=== PATIENT | female | born 1975 | race African-American/Black ===

== ENCOUNTER 2016-09-23 13:12 | Emergency (ER) | payer BC ==
[2016-09-23 13:18] VITALS: BP 131/85
--- NOTE | 2016-09-23 13:29 | UC ---
Complaint Female HPI - HPI Summary HPI Summary: 41 YEAR OLD FEMALE WITH COMPLAINS OF SEVERE SUPRAPUBIC PAIN AND FEAR OF RUPTURED CYST. I WILL SEND HER TO THE ER FOR PAIN CONTROL AND VAGINAL U/S. - History Of Current Complaint Chief Complaint: UCAbdominalPain Stated Complaint: SOFT TISSUE COMPLAINT Time Seen by Provider: 09/23/16 13:21 Hx Last Menstrual Period: does not get - Allergies/Home Medications Allergies/Adverse Reactions: Allergies Allergy/AdvReac Type Severity Reaction Status Date / Time Aspirin Allergy Severe Hives/Diff. Verified 09/23/16 14:33 Breathing/I tching Moxifloxacin [From Avelox] Allergy Severe Hives Verified 09/23/16 14:33 shellfish Allergy Severe Hives/Diff. Uncoded 09/23/16 14:33 Breathing/I tching PMH/Surg Hx/FS Hx/Imm Hx - Surgical History Surgical History: Yes Surgery Procedure, Year, and Place: ovarian mass (benign) removed 2010; bilat knee meniscus repair w/ pins; - Family History Known Family History: Positive: None - reviewed & noncontributory, Hypertension - mother Negative: Cardiac Disease, Diabetes - Social History Alcohol Use: Weekly Alcohol Amount: wine 2x week Substance Use Type: None Smoking Status (MU): Light Every Day Tobacco Smoker Type: Cigarettes Amount Used/How Often: 1/2 PPD Length of Time of Smoking/Using Tobacco: since age 20, off and on Household Exposure Type: Cigarettes Review of Systems Constitutional: Negative Skin: Negative Eyes: Negative ENT: Negative Respiratory: Negative Cardiovascular: Negative Gastrointestinal: Negative Genitourinary: Other - SUPRAPUBIC PAIN Motor: Negative Neurovascular: Negative Musculoskeletal: Negative Neurological: Negative Psychological: Negative All Other Systems Reviewed And Are Negative: Yes Physical Exam Triage Information Reviewed: Yes Vital Signs: Initial Vital Signs Temp 36.6 C 09/23/16 13:15 Pulse 91 09/23/16 13:15 Resp 20 09/23/16 13:15 BP 131/85 09/23/16 13:15 Pulse Ox 100 09/23/16 13:15 Eye Exam: Normal ENT Exam: Normal Dental Exam: Normal Neck exam: Normal Neck: Positive: 1 Respiratory Exam: Normal Cardiovascular Exam: Normal Abdomen Description: Positive: Other: - SUPRAPUBIC PAIN Musculoskeletal Exam: Normal Neurological Exam: Normal Psychological Exam: Normal Skin Exam: Normal Complaint Female Dx - Course Course Of Treatment: SUPRUPUBIC ABDOMINAL PAIN - Differential Dx/Diagnosis Provider Diagnoses: SUPRAPUBIC PAIN Discharge - Discharge Plan Condition: Guarded Disposition: AGAINST MEDICAL ADVICE Referrals: Gucci Spence MD [Primary Care Provider] -
== END 2016-09-23 13:35 | disposition left against medical advice (07) ==
LOC: UCEAST 13:12
DX: R10.30 Lower abdominal pain, unspecified (principal); Z88.6 Allergy status to analgesic agent; Z88.1 Allergy status to other antibiotic agents; Z91.013 Allergy to seafood; F17.210 Nicotine dependence, cigarettes, uncomplicated
CPT/HCPCS: 99212; G0463

== ENCOUNTER 2016-09-23 14:05 | Emergency (ER) | payer BC ==
[2016-09-23] MEDS ORDERED: NS 0.9% 1000 ML* 1,000 ML IV SCH (15:00)
[2016-09-23] MEDS ORDERED: Ondansetron INJ* 2 MG/ML VIAL IV ONE (15:00)
[2016-09-23] MEDS ORDERED: Morphine INJ* 4 MG/ML 1 ML SYRINGE IV ONE ×2 (15:00→18:26)
[2016-09-23 15:26] LABS: Hematocrit 40 % (35-47); Hemoglobin 13.1 g/dl (12.0-16.0); Mean Corpuscular HGB Conc 33 g/dl (31-36); Mean Corpuscular Hemoglobin 29 pg (27-31); Mean Corpuscular Volume 88 fL (80-97); Mean Platelet Volume 8 um3 (7.4-10.4); Red Blood Count 4.49 10^6/ul (4.0-5.4); Red Cell Distribution Width 14 % (10.5-15)
[2016-09-23 15:42] LABS: Urine Bilirubin Negative (Negative); Urine Glucose Negative (Negative); Urine Nitrite Negative (Negative)
[2016-09-23 15:43] LABS: ALT 29 U/L (7-52); AST 15 U/L (13-39); Alkaline Phosphatase 47 U/L (34-104); Anion Gap 6 mmol/L (2-11); BUN/Creatinine Ratio 14.8 (8-20); Blood Urea Nitrogen 13 mg/dL (6-24); CO2 Carbon Dioxide 24 mmol/L (22-32); Calcium 9.4 mg/dL (8.6-10.3); Chloride 107 mmol/L (101-111); EGFR African American 91.5 (>60); EGFR Non-African American 71.2 (>60); Globulin 2.9 g/dL (2-4); Glucose 117 mg/dL (70-100); Lipase 21 U/L (11.0-82.0); Potassium 3.4 mmol/L (3.5-5.0); Sodium 137 mmol/L (133-145); Total Protein 6.9 g/dL (6.4-8.9)
--- NOTE | 2016-09-23 15:54 | RAD ---
HISTORY: Pelvic pain COMPARISONS: June 03, 2015 TECHNIQUE: Multiple transverse and longitudinal ultrasound images were obtained of the pelvis using grayscale, color Doppler, and spectral Doppler imaging using the endovaginal transducer. FINDINGS: UTERUS: The uterus measures 7.5 x 4.1 x 4.7 cm. The uterus is normal in shape, size, contour, and echotexture. ENDOMETRIUM: The endometrial stripe is smooth. The endometrium measures 1.1 cm in thickness. There is cystic change of the endometrium at the lower uterine segment. CUL-DE-SAC: There is a small amount of simple fluid within the cul-de-sac. This may be physiologic in a reproductive age female. RIGHT OVARY: The right ovary measures 4.2 x 2.2 x 3.1 cm. Multiple follicles are noted. Normal arterial and venous waveforms are identifiable within the ovary on spectral Doppler imaging. LEFT OVARY: The left ovary measures 3.8 x 2.5 x 1.8 cm. Multiple follicles are noted. Normal arterial and venous waveforms are identifiable within the ovary on spectral Doppler imaging. BLADDER: The bladder is not well visualized. IMPRESSION: 1. CYSTIC CHANGE TO THE ENDOMETRIUM ALONG THE LOWER UTERINE SEGMENT. 2. SMALL AMOUNT WITHIN THE CUL-DE-SAC. THIS MAY BE PHYSIOLOGIC IN A REPRODUCTIVE AGE FEMALE. 3. NO SONOGRAPHIC FEATURES OF TORSION. PLEASE NOTE THAT PARTIAL OR INTERMITTENT TORSION MAY BE SONOGRAPHICALLY NORMAL.
[2016-09-23 16:08] LABS: TSH (Thyroid Stimulating Horm) 2.13 mcIU/mL (0.34-5.60)
[2016-09-23] MEDS ORDERED: Iohexol 300* (CONTRAST) 10 ML SDV IV ONE (16:51)
[2016-09-23 17:38] VITALS: BP 106/64
--- NOTE | 2016-09-23 18:54 | RAD ---
CLINICAL HISTORY: Lower abdominal and back pain COMPARISON: Multiple previous CT examinations, most recently dated January 28, 2014 TECHNIQUE: Contrast enhanced CT examination of the abdomen and pelvis from the lung bases through the initial tuberosities. The patient received 125 mL Omnipaque 300 intravenously prior to imaging.The patient received oral contrast as well prior to imaging. FINDINGS: VISUALIZED LUNG BASES: The visualized lung bases are grossly clear. There is no pleural effusion. ABDOMEN AND PELVIS: The liver, spleen, pancreas and adrenal glands are grossly normal in appearance. The gallbladder is normal. The kidneys are normal in appearance without focal mass, calcification or signs of hydronephrosis. The oral contrast has progressed as far as the descending colon. The small and large bowel are not distended. The appendix is top normal measuring 7 mm in diameter but there is contrast and gas filling most of the lumen (coronal image 42 through 48). There is no gross retroperitoneal or mesenteric lymphadenopathy. The pelvic viscera is normal in appearance. The abdominal aorta and iliac arteries are normal in course and diameter. There are no sinister bone lesions. IMPRESSION: Normal CT examination.
--- NOTE | 2016-09-23 19:20 | ED ---
Courtney Santillan Edward, scribed for Reed Hernandez MD on 09/23/16 at 1439 . Abdominal Pain/Female - HPI Summary HPI Summary: 41 y/o female presents to ED c/o ABD pain that started around 4 days ago. Pain is located in the lower ABD and radiates to the lower back. The pain is rated at an 8/10 in severity at its worst and mild currently. Patient stated her back was in a throbbing pain. Pain is aggravated with bowel movements, urination, walking down steps and cough; alleviated by rest. Denies vaginal discharge, nausea, fevers, and chills. PMHx cysts and endometriosis. SHx ovarian mass removed (4 years). LNMP 3 weeks ago (normal). G/P/A - . - History of Current Complaint Chief Complaint: EDAbdPain Stated Complaint: PAIN COMING FROM CONV CARE Hx Obtained From: Patient Hx Last Menstrual Period: does not get Onset/Duration: Sudden Onset, Lasting Days - Started 4 days ago Timing: Constant Severity Initially: Severe Severity Currently: Severe Pain Intensity: 9 Pain Scale Used: 0-10 Numeric Location: Suprapubic Radiates: Yes Radiates to: Back Character: Other: - Throbbing Aggravating Factor(s): Movement - Walking down steps, Other: - Urination, bowel movements, cough Alleviating Factor(s): Other: - Rest Associated Signs and Symptoms: Positive: Back Pain. Negative: Fever, Vaginal Discharge, Nausea Allergies/Adverse Reactions: Allergies Allergy/AdvReac Type Severity Reaction Status Date / Time Aspirin Allergy Severe Hives/Diff. Verified 09/23/16 14:33 Breathing/I tching Moxifloxacin [From Avelox] Allergy Severe Hives Verified 09/23/16 14:33 shellfish Allergy Severe Hives/Diff. Uncoded 09/23/16 14:33 Breathing/I tching PMH/Surg Hx/FS Hx/Imm Hx Previously Healthy: No Endocrine/Hematology History: Denies: Hx Diabetes, Hx Systemic Lupus Erythematosus, Hx Thyroid Disease Cardiovascular History: Reports: Hx Hypertension - was on HCTZ, but no primary any longer Denies: Hx Congestive Heart Failure, Hx Hypercholesterolemia, Hx Pacemaker/ ICD Respiratory History: Denies: Hx Asthma, Hx Chronic Obstructive Pulmonary Disease (COPD) GI History: Reports: Other GI Disorders - abd mass ssurgery Denies: Hx Ulcer History: Denies: Hx Dialysis, Hx Renal Disease Musculoskeletal History: Denies: Hx Rheumatoid Arthritis Sensory History: Denies: Hx Hearing Aid Psychiatric History: Denies: Hx Panic Disorder - Cancer History Hx Chemotherapy: No - Surgical History Surgery Procedure, Year, and Place: ovarian mass (benign) removed 2010; bilat knee meniscus repair w/ pins; Infectious Disease History: No Infectious Disease History: Denies: Hx Hepatitis, Hx Human Immunodeficiency Virus (HIV), Traveled Outside the [place] in Last 30 Days - Family History Known Family History: Positive: Hypertension - mother Negative: Cardiac Disease, Diabetes - Social History Occupation: Employed Full-time Lives: Alone Alcohol Use: Weekly Alcohol Amount: wine 2x week Substance Use Type: Reports: None Hx Tobacco Use: Yes Smoking Status (MU): Light Every Day Tobacco Smoker Type: Cigarettes Amount Used/How Often: 1/2 PPD Length of Time of Smoking/Using Tobacco: since age 20, off and on Review of Systems Constitutional: Negative Negative: Fever, Chills Eyes: Negative ENT: Negative Cardiovascular: Negative Respiratory: Negative Positive: Abdominal Pain - radiating to the back. Negative: Nausea Genitourinary: Negative Negative: discharge Positive: Myalgia - Lower back pain from abd pain Skin: Negative Neurological: Negative Psychological: Normal All Other Systems Reviewed And Are Negative: Yes Physical Exam Triage Information Reviewed: Yes Vital Signs On Initial Exam: Initial Vitals Temp Pulse Resp BP Pulse Ox 98.0 F 88 16 141/88 98 09/23/16 14:09 09/23/16 14:09/23/16 14:09/23/16 14:09/23/16 14:09 Vital Signs Reviewed: Yes Appearance: Positive: Well-Appearing, Pain Distress - Mild Skin: Positive: Warm, Skin Color Reflects Adequate Perfusion, Dry Head/Face: Positive: Normal Head/Face Inspection Eyes: Positive: EOMI, HUE ENT: Positive: Normal ENT inspection Neck: Positive: Supple, Nontender Respiratory/Lung Sounds: Positive: Clear to Auscultation, Breath Sounds Present Cardiovascular: Positive: RRR Abdomen Description: Positive: Soft, Other: - Tenderness @ suprapubic region Bowel Sounds: Positive: Present Musculoskeletal: Positive: Normal, Strength/ROM Intact Neurological: Positive: Normal, Sensory/Motor Intact, Alert, Oriented to Person Place, Time Psychiatric: Positive: Affect/Mood Appropriate - Keny Coma Scale Coma Scale Total: 15 Diagnostics - Vital Signs Vital Signs Temp Pulse Resp BP Pulse Ox 09/23/16 14:09 98.0 F 88 16 141/88 98 - Laboratory Lab Results: Lab Results 09/23/16 09/23/16 09/23/16 Range/Units 14:25 15:15 15:15 WBC 8.0 (3.5-10.8) 10^3/ul RBC 4.49 (4.0-5.4) 10^6/ul Hgb 13.1 (12.0-16.0) g/dl Hct 40 (35-47) % MCV 88 (80-97) fL MCH 29 (27-31) pg MCHC 33 (31-36) g/dl RDW 14 (10.5-15) % Plt Count 254 (150-450) 10^3/ul MPV 8 (7.4-10.4) um3 Neut % (Auto) 57.5 (38-83) % Lymph % (Auto) 31.8 (25-47) % [place] % (Auto) 8.3 (1-9) % Eos % (Auto) 1.5 (0-6) % Baso % (Auto) 0.9 (0-2) % Absolute Neuts (auto) 4.6 (1.5-7.7) 10^3/ul Absolute Lymphs (auto) 2.6 (1.0-4.8) 10^3/ul Absolute Monos (auto) 0.7 (0-0.8) 10^3/ul Absolute Eos (auto) 0.1 (0-0.6) 10^3/ul Absolute Basos (auto) 0.1 (0-0.2) 10^3/ul Absolute Nucleated RBC 0.01 10^3/ul Nucleated RBC % 0.1 INR (Anticoag Therapy) 0.97 (0.89-1.11) APTT 29.4 (26.0-36.3) seconds Sodium (133-145) mmol/L Potassium (3.5-5.0) mmol/L Chloride (101-111) mmol/L Carbon Dioxide (22-32) mmol/L Anion Gap (2-11) mmol/L BUN (6-24) mg/dL Creatinine (0.51-0.95) mg/dL Est GFR ( Amer) (>60) Est GFR (Non-Af Amer) (>60) BUN/Creatinine Ratio (8-20) Glucose (70-100) mg/dL Lactic Acid (0.5-2.0) mmol/L Calcium (8.6-10.3) mg/dL Total Bilirubin (0.2-1.0) mg/dL AST (13-39) U/L ALT (7-52) U/L Alkaline Phosphatase (34-104) U/L C-Reactive Protein (< 5.00) mg/L Total Protein (6.4-8.9) g/dL Albumin (3.2-5.2) g/dL Globulin (2-4) g/dL Albumin/Globulin Ratio (1-3) Lipase (11.0-82.0) U/L TSH (0.34-5.60) mcIU/mL Beta HCG, Quant mIU/mL Urine Color Yellow Urine Appearance Clear Urine pH 7.0 (5-9) Ur Specific Baker 1.012 (1.010-1.030) Urine Protein Negative (Negative) Urine Ketones Negative (Negative) Urine Blood Negative (Negative) Urine Nitrate Negative (Negative) Urine Bilirubin Negative (Negative) Urine Urobilinogen Negative (Negative) Ur Leukocyte Esterase Negative (Negative) Urine Glucose Negative (Negative) 09/23/16 09/23/16 Range/Units 15:15 15:15 WBC (3.5-10.8) 10^3/ul RBC (4.0-5.4) 10^6/ul Hgb (12.0-16.0) g/dl Hct (35-47) % MCV (80-97) fL MCH (27-31) pg MCHC (31-36) g/dl RDW (10.5-15) % Plt Count (150-450) 10^3/ul MPV (7.4-10.4) um3 Neut % (Auto) (38-83) % Lymph % (Auto) (25-47) % [place] % (Auto) (1-9) % Eos % (Auto) (0-6) % Baso % (Auto) (0-2) % Absolute Neuts (auto) (1.5-7.7) 10^3/ul Absolute Lymphs (auto) (1.0-4.8) 10^3/ul Absolute Monos (auto) (0-0.8) 10^3/ul Absolute Eos (auto) (0-0.6) 10^3/ul Absolute Basos (auto) (0-0.2) 10^3/ul Absolute Nucleated RBC 10^3/ul Nucleated RBC % INR (Anticoag Therapy) (0.89-1.11) APTT (26.0-36.3) seconds Sodium 137 (133-145) mmol/L Potassium 3.4 L (3.5-5.0) mmol/L Chloride 107 (101-111) mmol/L Carbon Dioxide 24 (22-32) mmol/L Anion Gap 6 (2-11) mmol/L BUN 13 (6-24) mg/dL Creatinine 0.88 (0.51-0.95) mg/dL Est GFR ( Amer) 91.5 (>60) Est GFR (Non-Af Amer) 71.2 (>60) BUN/Creatinine Ratio 14.8 (8-20) Glucose 117 H (70-100) mg/dL Lactic Acid 0.9 (0.5-2.0) mmol/L Calcium 9.4 (8.6-10.3) mg/dL Total Bilirubin 0.30 (0.2-1.0) mg/dL AST 15 (13-39) U/L ALT 29 (7-52) U/L Alkaline Phosphatase 47 (34-104) U/L C-Reactive Protein 5.80 H (< 5.00) mg/L Total Protein 6.9 (6.4-8.9) g/dL Albumin 4.0 (3.2-5.2) g/dL Globulin 2.9 (2-4) g/dL Albumin/Globulin Ratio 1.4 (1-3) Lipase 21 (11.0-82.0) U/L TSH 2.13 (0.34-5.60) mcIU/mL Beta HCG, Quant < 0.60 mIU/mL Urine Color Urine Appearance Urine pH (5-9) Ur Specific Baker (1.010-1.030) Urine Protein (Negative) Urine Ketones (Negative) Urine Blood (Negative) Urine Nitrate (Negative) Urine Bilirubin (Negative) Urine Urobilinogen (Negative) Ur Leukocyte Esterase (Negative) Urine Glucose (Negative) Result Diagrams: 09/23/16 15:15 09/23/16 15:15 Lab Statement: Any lab studies that have been ordered have been reviewed, and results considered in the medical decision making process. - CT ABD/PELVIS CT CT Interpretation: No Acute Changes - Normal CT examination CT Interpretation Completed By: Radiologist - Ultrasound No standard instances Ultrasound Interpretation: Positive (See Comments) - TRANSVAGINAL US - 1. CYSTIC CHANGE TO THE ENDOMETRIUM ALONG THE LOWER UTERINE SEGMENT. 2. SMALL AMOUNT WITHIN THE CUL-DE-SAC. THIS MAY BE PHYSIOLOGIC IN A REPRODUCTIVE AGE FEMALE. 3. NO SONOGRAPHIC FEATURES OF TORSION. PLEASE NOTE THAT PARTIAL OR INTERMITTENT TORSION MAY BE SONOGRAPHICALLY NORMAL. Ultrasound Interpretation Completed By: Radiologist Abdominal Pain Fem Course/Dx - Course Course Of Treatment: NO CRITICAL CARE TIME. DISCUSSED RESULTS WITH PATIENT. SHE HAS F/U WITH PMD TOMORROW AND OBGYN NEXT WEEK. DISCHARGE HOME STABLE. - Diagnoses Provider Diagnoses: Pelvic pain, Abdominal pain Discharge - Discharge Plan Condition: Stable Disposition: HOME Prescriptions: oxyCODONE/Acetamin 5/325 MG* [Percocet 5/325 TAB*] 1 tab PO Q4H PRN #20 tab MDD 6 PRN Reason: Pain Patient Education Materials: Pelvic Pain in Women (ED), Abdominal Pain (ED) Referrals: Gucci Spence MD [Primary Care Provider] - Additional Instructions: FOLLOW UP WITH YOUR DOCTOR. RETURN TO THE EMERGENCY DEPARTMENT FOR ANY WORSENING OF YOUR CONDITION; PAIN, FEVER, YOU FEEL ILL, YOU FEEL LIKE PASSING OUT OR QUESTIONS OR CONCERNS. The documentation as recorded by the Courtney frances Edward accurately reflects the service I personally performed and the decisions made by me, Reed Hernandez MD.
== END 2016-09-23 19:27 | disposition home or self-care (01) ==
LOC: ED 14:05
DX: R10.2 Pelvic and perineal pain (principal); R10.9 Unspecified abdominal pain
CPT/HCPCS: 36415; 74177; 76830; 80053; 81003; 83605; 83690; 84443; 84702; 85025; 85610; 85730; 86140; 87480; 87491; 87510; 87591; 87661; 96374; 96375; 99283; J2270; J2405; Q9967

== ENCOUNTER 2017-03-27 15:30 | Emergency (ER) | payer BC ==
[2017-03-27] MEDS ORDERED: Acetaminophen TAB* 325 MG PO ONE (15:58)
[2017-03-27 16:33] VITALS: BP 136/96
--- NOTE | 2017-03-27 16:46 | UC ---
Frankie Santillan Nilda, scribed for Reed Hernandez MD on 03/27/17 at 1605 . Headache HPI - HPI Summary HPI Summary: This patient is a 41 year old F presenting to [facility] with a chief complaint of constant throbbing headache (rated 9/10 in severity) since waking up this morning. Pt woke up with blood glucose of 200 at 0900. Nurse states blood glucose is 159 currently. Pt also reports fatigue, increased thirst, urinary frequency, seeing dark spots, and lightheadedness. She denies fever, chills, burning with urination, CP, SOB, focal weakness or numbness, recent cough, rhinorrhea, and chest congestion. Symptoms alleviated by nothing. Pt notes she was recently diagnosed with diabetes and was placed on Metformin. Two weeks ago , her Metformin dosage was increased from 500mg per day to 500mg BID. Last week , pt reports nausea, vomiting, diaphoresis, and dizziness which was resolved when she ate food. Pt is on medications for HTN. Pt states she experienced similar headache before being placed on her high blood pressure medication. BP (167/115) noted and advised to follow up with PCP. Medications and allergies reviewed. - History Of Current Complaint Chief Complaint: UCDizziness Stated Complaint: LIGHT-HEADED,HEADACHE Time Seen by Provider: 03/27/17 15:39 Hx Obtained From: Patient Hx Last Menstrual Period: does not get Onset/Duration: Sudden Onset, Lasting Hours, Still Present Onset Of Symptoms: Sudden, Still Present Currently Pain Is: Current Pain Scale(0-10)= - 9 Pain Intensity: 9 Pain Scale Used: 0-10 Numeric Timing: Constant Character: Throbbing Location of Headache: Diffuse Allevating Factor(s): Nothing Associated Signs And Symptoms: Positive: Other (Noted In Comments) - fatigue, throbbing headache as if someone is squeezing my head in, increased thirst, urinary frequency, seeing dark spots, and lightheadedness. She denies fever, chills, burning with urination, CP, SOB, focal weakness or numbness, recent cough, rhinorrhea, and chest congestion. - Allergies/Home Medications Allergies/Adverse Reactions: Allergies Allergy/AdvReac Type Severity Reaction Status Date / Time Aspirin Allergy Severe Hives/Diff. Verified 03/27/17 15:34 Breathing/I tching Moxifloxacin [From Avelox] Allergy Severe Hives Verified 03/27/17 15:34 shellfish Allergy Severe Hives/Diff. Uncoded 03/27/17 15:34 Breathing/I tching Home Medications: Home Medications Irbesartan-Hydrochlorothiazide [Irbesartan/Hydrochlorothi 150-12.5 mg] 1 tab PO DAILY 03/27/17 [History Confirmed 03/27/17] Metoprolol Tartrate TAB* [Lopressor TAB*] 50 mg PO BID 03/27/17 [History Confirmed 03/27/17] Norethindrone Acetate-Ethinyl [Lo Loestrin Fe 1 mg-10 Mcg / 10 Mcg] 1 tab PO DAILY 03/27/17 [History Confirmed 03/27/17] metFORMIN* [Glucophage 500 MG TAB *] 500 mg PO BID 03/27/17 [History Confirmed 03/27/17] PMH/Surg Hx/FS Hx/Imm Hx Endocrine History: Diabetes Cardiovascular History: Hypertension - Surgical History Surgical History: Yes Surgery Procedure, Year, and Place: ovarian mass (benign) removed 2010; bilat knee meniscus repair w/ pins; - Family History Known Family History: Positive: Hypertension - mother, Diabetes Negative: Cardiac Disease - Social History Occupation: Employed Full-time Lives: With Family Alcohol Use: Weekly Alcohol Amount: wine 2x week Substance Use Type: None Smoking Status (MU): Light Every Day Tobacco Smoker Type: Cigarettes Amount Used/How Often: 1/2 PPD Length of Time of Smoking/Using Tobacco: since age 20, off and on Household Exposure Type: Cigarettes Review of Systems Constitutional: Fatigue, Other - elevated blood glucose, increased thirst; negative fever, chills Skin: Other - diaphoresis ENT: Other - negative rhinorrhea Respiratory: Other - negative SOB, cough, chest congestion Cardiovascular: Other - negative CP Gastrointestinal: Vomiting - last week, Nausea - last week Genitourinary: Frequency, Other - negative burning with urination Neurological: Headache, Other - light headedness, seeing dark spots, dizziness ( last week); negative focal weakness or numbness All Other Systems Reviewed And Are Negative: Yes Physical Exam Triage Information Reviewed: Yes Vital Signs: Initial Vital Signs Temp 97.7 F 03/27/17 15:39 Pulse 101 03/27/17 15:39 Resp 18 03/27/17 15:39 BP 167/115 03/27/17 15:39 Pulse Ox 100 03/27/17 15:39 Vital Signs Reviewed: Yes - Additional Comments General: well-appearing, no pain distress Skin: warm, color reflects adequate perfusion, dry Head: normal Eyes: EOMI, HUE ENT: normal Neck: supple, nontender Respiratory: CTA, breath sounds present Cardiovascular: RRR Abdomen: soft, nontender Bowel: present Musculoskeletal: normal, strength/ROM intact Neurological: normal, sensory/motor intact, A&O x3 Psychological: affect/mood appropriate Diagnostics - EKG Cardiac Rate: NL Cardiac Rhythm: Sinus: Normal - 76 bpm Ectopy: None ST Segment: Normal Headache Course/Dx - Course Course Of Treatment: BP noted and advised to follow up with PCP. Allergies noted. Medications reviewed. An EKG reveals NSR, 76 bpm, normal ST, and no ectopy. PATIENT TOOK HER AFTERNOON BP MED AND ACETAMINOPHEN 975MG PO IN CLINIC. BP IMPROVED TO 136/96 AND HEADACHE ALMOST GONE. WE DISCUSSED GOING TO THE ED IF NOT IMPROVED. F/U PMD; GO TO ED IF WORSE. - Differential Dx/Diagnosis Provider Diagnoses: hypertension. HEADACHE Discharge - Discharge Plan Condition: Stable Disposition: HOME Patient Education Materials: Acute Headache (ED), Hypertension (ED) Referrals: Briana Lion PA [Physician [employer]] - Additional Instructions: GO TO THE EMERGENCY DEPARTMENT IF YOUR HEADACHE DOES NOT GO AWAY AND/OR YOUR BLOOD PRESSURE DOES NOT IMPROVE. FOLLOW UP WITH YOUR DOCTOR. GO TO THE EMERGENCY DEPARTMENT FOR ANY WORSENING OF YOUR CONDITION OR QUESTIONS OR CONCERNS. Your blood pressure was elevated during todays visit; please follow up with your primary care provider within a week for further evaluation. The documentation as recorded by the Frankie frnaces Nilda accurately reflects the service I personally performed and the decisions made by me, Reed Hernandez MD.
== END 2017-03-27 16:52 | disposition home or self-care (01) ==
LOC: UCEAST 15:30
DX: R51 Headache (principal); I10 Essential (primary) hypertension; R53.83 Other fatigue; R63.1 Polydipsia; R35.0 Frequency of micturition; R42 Dizziness and giddiness; E11.9 Type 2 diabetes mellitus without complications; R61 Generalized hyperhidrosis; F17.210 Nicotine dependence, cigarettes, uncomplicated; Z88.6 Allergy status to analgesic agent; Z88.1 Allergy status to other antibiotic agents; Z91.013 Allergy to seafood; Z79.84 Long term (current) use of oral hypoglycemic drugs
CPT/HCPCS: 93005; 99212; A9270-GY; G0463

== ENCOUNTER 2018-03-31 09:16 | Emergency (ER) | payer BC ==
[2018-03-31 09:26] VITALS: BP 159/112
--- NOTE | 2018-03-31 09:56 | UC ---
Complaint Female HPI - HPI Summary HPI Summary: 42 yo female presents with RLQ/Right pelvic pain for the last 4 days. She tells me that she has a history of PCOS and benign "masses" around her reproductive organs. About 6 years ago she had surgery to remove a mass, but still maintains her ovaries and uterus. About 4 days ago she developed RLQ pain that she attributed to a cyst - as she has this discomfort rather frequently. She tells me that usually the pain with last 2-3 days and the cyst will burst and her pain will resolve, but this time the pain has been persisting. She denies fever , n/v/d/c, dysuria, vaginal bleeding or discharge. She has been taking ibuprofen for the discomfort with little relief. - History Of Current Complaint Chief Complaint: UCAbdominalPain Stated Complaint: ABD PAIN Time Seen by Provider: 03/31/18 09:43 Hx Obtained From: Patient Hx Last Menstrual Period: 03/15/18 Onset/Duration: Gradual Onset Severity Initially: Moderate Severity Currently: Severe Pain Intensity: 9 Pain Scale Used: 0-10 Numeric - Allergies/Home Medications Allergies/Adverse Reactions: Allergies Allergy/AdvReac Type Severity Reaction Status Date / Time MS Aspirin [Aspirin] Allergy Severe Hives/Diff. Verified 03/27/17 15:34 Breathing/I tching MS Moxifloxacin [From Avelox] Allergy Severe Hives Verified 03/27/17 15:34 shellfish Allergy Severe Hives/Diff. Uncoded 03/27/17 15:34 Breathing/I tching PMH/Surg Hx/FS Hx/Imm Hx - Additional Past Medical History Additional PMH: PCOS Endometriosis Cardiovascular History: Hypertension - Surgical History Surgical History: Yes Surgery Procedure, Year, and Place: ovarian mass (benign) removed 2010; bilat knee meniscus repair w/ pins; - Family History Known Family History: Positive: Hypertension - mother, Diabetes Negative: Cardiac Disease - Social History Occupation: Employed Full-time Lives: With Family Alcohol Use: Weekly Alcohol Amount: wine 2x week Substance Use Type: None Smoking Status (MU): Light Every Day Tobacco Smoker Type: Cigarettes Amount Used/How Often: 1/2 PPD Length of Time of Smoking/Using Tobacco: since age 20, off and on Household Exposure Type: Cigarettes Review of Systems All Other Systems Reviewed And Are Negative: Yes Constitutional: Positive: Negative Skin: Positive: Negative Respiratory: Positive: Negative Cardiovascular: Positive: Negative Gastrointestinal: Positive: Abdominal Pain Genitourinary: Positive: Negative Motor: Positive: Negative Neurological: Positive: Negative Psychological: Positive: Negative Physical Exam - Summary Physical Exam Summary: GENERAL: NAD. WDWN. No pain distress. SKIN: No rashes, sores, lesions, or open wounds. NECK: Supple. Nontender. No lymphadenopathy. CHEST: CTAB. No r/r/w. No accessory muscle use. Breathing comfortably and in no distress. CV: RRR. Without m/r/g. Pulses intact. Cap refill <2seconds ABDOMEN: Mild RLQ TTP. Negative rovsing's and psoas. Soft. No distention or guarding. No CVA tenderness. Bowel sounds present NEURO: Alert. PSYCH: Age appropriate behavior. Triage Information Reviewed: Yes Vital Signs: Initial Vital Signs Temp 98.6 F 03/31/18 09:22 Pulse 92 03/31/18 09:22 Resp 18 03/31/18 09:22 BP 159/112 03/31/18 09:22 Pulse Ox 100 03/31/18 09:22 Laboratory Tests 03/31/18 03/31/18 09:45 10:02 POC Urine Color Yellow POC Urine Clarity Clear POC Urine pH 6.5 POC Ur Specif [place] 1.020 POC Urine Protein Negative POC Ur Glucose (UA) Trace A POC Urine Ketones Negative POC Urine Blood Negative POC Urine Nitrite Negative POC Urine Bilirubin Negative POC Urine Urobilinogen 1.0 POC U Leukocyte Esteras Negative POC Ur Test Negative Vital Signs Reviewed: Yes Complaint Female Dx - Course Course Of Treatment: US: IMPRESSION: 1. THERE IS A 4.4 CM LESION OF THE RIGHT OVARY. THE DIFFERENTIAL INCLUDES HEMORRHAGIC. CYST VERSUS ENDOMETRIOMA. 2. NO SONOGRAPHIC FEATURES OF TORSION. PLEASE NOTE THAT PARTIAL OR INTERMITTENT TORSION. MAY BE SONOGRAPHICALLY NORMAL. She was given toradol IM in the clinic for her discomfort with mild relief. Discussed results with the pt. She has an OBGYN and will call them as soon as she leaves the clinic today for follow up. Rx for percocet to use sparingly for pain and if this cyst ruptures causing increased pain. iSTOP Reference #: [id number] - Differential Dx/Diagnosis Provider Diagnosis: Hemorrhagic cyst Discharge - Sign-Out/Discharge Documenting (check all that apply): Patient Departure All imaging exams completed and their final reports reviewed: Yes - Discharge Plan Condition: Stable Disposition: HOME Prescriptions: oxyCODONE/Acetamin 5/325 MG* [Percocet 5/325 TAB*] 1 tab PO Q8H PRN #12 tab MDD 3 PRN Reason: Pain Patient Education Materials: Ovarian Cyst (ED) Referrals: Briana Lion PA [Primary Care Provider] - Additional Instructions: If you develop a fever, shortness of breath, chest pain, new or worsening symptoms - please call your PCP or go to the ED. Your blood pressure was high at todays visit. Please see your primary provider within 4 weeks for recheck and re-evaluation. Please follow up with your OBGYN for further evaluation of your ovarian cyst - Billing Disposition and Condition Condition: STABLE Disposition: Home
[2018-03-31] MEDS: Ketorolac INJ* 60 MG/2 ML VIAL IM ONE (10:30)
== END 2018-03-31 10:55 | disposition home or self-care (01) ==
LOC: UCEAST 09:16
DX: N83.201 Unspecified ovarian cyst, right side (principal); R10.31 Right lower quadrant pain; Z88.6 Allergy status to analgesic agent; I10 Essential (primary) hypertension; F17.210 Nicotine dependence, cigarettes, uncomplicated
CPT/HCPCS: 76830; 81003; 84702; 96372; 99211; G0463; J1885

== ENCOUNTER 2018-07-14 10:17 | Emergency (ER) | payer BC ==
--- NOTE | 2018-07-14 10:39 | ED ---
Abdominal Pain/Female - HPI Summary HPI Summary: A 42 y/o F presents to ED with c/o waves of epigastric abd pain onset approx 0730. The pain is described as burning and shooting. The pain radiates to her back. The pain does not feel similar to her previous endometriosis and ovary pains. Associated sx: nausea. Denies: vomiting. She had a banana and almonds this AM. Medications discussed. PMHx: PCOS. [facility]: June, which was normal. - History of Current Complaint Chief Complaint: EDChestPainROMI Stated Complaint: STOMACH PAIN PER PT Time Seen by Provider: 07/14/18 10:33 Hx Obtained From: Patient Hx Last Menstrual Period: 03/15/18 Onset/Duration: Sudden Onset, Lasting Hours, Still Present Timing: Intermittent Episode Lasting Severity Initially: Moderate Severity Currently: Severe Pain Intensity: 9 - at worst Pain Scale Used: 0-10 Numeric Location: Epigastric Radiates: Yes Radiates to: Back Character: Burning, Other: - shooting Associated Signs and Symptoms: Positive: Nausea. Negative: Vomiting Allergies/Adverse Reactions: Allergies Allergy/AdvReac Type Severity Reaction Status Date / Time aspirin Allergy Hives/Diff. Verified 07/14/18 10:43 Breathing/I tching moxifloxacin [From Avelox] Allergy Hives Verified 07/14/18 10:43 shellfish derived Allergy Hives/Diff. Verified 07/14/18 10:43 Breathing/I tching Home Medications: Home Medications Hydrochlorothiazide TAB* [Hydrodiuril TAB*] 12.5 mg PO DAILY 07/14/18 [History Confirmed 07/14/18] amLODIPine TAB* [Norvasc 5 mg TAB*] 5 mg PO DAILY 07/14/18 [History Confirmed ] PMH/Surg Hx/FS Hx/Imm Hx Previously Healthy: No Endocrine/Hematology History: Reports: Hx Diabetes - on po meds Denies: Hx Systemic Lupus Erythematosus, Hx Thyroid Disease Cardiovascular History: Reports: Hx Hypertension - was on HCTZ, but no primary any longer Denies: Hx Congestive Heart Failure, Hx Hypercholesterolemia, Hx Pacemaker/ ICD Respiratory History: Denies: Hx Asthma, Hx Chronic Obstructive Pulmonary Disease (COPD) GI History: Reports: Other GI Disorders - abd mass ssurgery Denies: Hx Ulcer History: Denies: Hx Dialysis, Hx Renal Disease Musculoskeletal History: Denies: Hx Rheumatoid Arthritis Sensory History: Denies: Hx Hearing Aid Psychiatric History: Denies: Hx Panic Disorder - Cancer History Hx Chemotherapy: No Hx Radiation Therapy: No - Surgical History Surgery Procedure, Year, and Place: ovarian mass (benign) removed 2010; bilat knee meniscus repair w/ pins; Infectious Disease History: No Infectious Disease History: Denies: Hx Hepatitis, Hx Human Immunodeficiency Virus (HIV), Traveled Outside the [place] in Last 30 Days - Family History Known Family History: Positive: Hypertension - mother, Diabetes Negative: Cardiac Disease - Social History Occupation: Employed Full-time Lives: With Family Alcohol Use: Weekly Alcohol Amount: wine 2x week Hx Substance Use: No Substance Use Type: Reports: None Hx Tobacco Use: Yes Smoking Status (MU): Light Every Day Tobacco Smoker Type: Cigarettes Amount Used/How Often: 1/2 PPD Length of Time of Smoking/Using Tobacco: since age 20, off and on Review of Systems Positive: Abdominal Pain, Nausea. Negative: Vomiting Musculoskeletal: Other - pos: back pain All Other Systems Reviewed And Are Negative: Yes Physical Exam - Summary Physical Exam Summary: VITAL SIGNS: Reviewed. GENERAL: Patient is a well-developed and nourished female who is lying comfortable in the stretcher. Patient is not in any acute respiratory distress. HEAD AND FACE: Normocephalic and atraumatic. EYES: PERRLA, EOMI x 2, No injected conjunctiva. EARS: Hearing grossly intact. Ear canals and tympanic membranes are WNL. MOUTH: Oropharynx within normal limits. NECK: Supple, trachea is midline, no adenopathy, no JVD. CHEST: Symmetric, no tenderness at palpation LUNGS: Clear to auscultation bilaterally. No wheezing or crackles. CVS: RRR, S1 and S2 present, no murmurs or gallops appreciated. ABDOMEN: Epigastric and RUQ tenderness. Soft. No signs of distention. Positive bowel sounds. No rebound, no guarding, and no masses palpated. No abdominal bruit or pulsations. EXTREMITIES: FROM in all major joints, no edema, no cyanosis or clubbing. NEURO: Alert and oriented x 3. No acute neurological deficits. Speech is normal. SKIN: Dry and warm Triage Information Reviewed: Yes Vital Signs On Initial Exam: Initial Vitals Temp Pulse Resp BP Pulse Ox 96.4 F 88 18 169/119 98 07/14/18 10:21 07/14/18 10:21 07/14/18 10:21 07/14/18 10:21 07/14/18 10:21 Vital Signs Reviewed: Yes Diagnostics - Vital Signs Vital Signs Temp Pulse Resp BP Pulse Ox 07/14/18 10:21 96.4 F 88 18 169/119 98 - Laboratory Result Diagrams: 07/14/18 11:00 07/14/18 11:00 Lab Statement: Any lab studies that have been ordered have been reviewed, and results considered in the medical decision making process. - CT A/P CT CT Interpretation Completed By: Radiologist Summary of CT Findings: IMPRESSION: 1. FATTY INFILTRATION OF LIVER. 2. COMPLEX CYSTIC LESION OF THE RIGHT HEMIPELVIS THAT APPEARS TO CORRESPOND TO AN OVARIAN LESION DESCRIBED ON PREVIOUS ULTRASOUND. ED provider has reviewed this report. - EKG 1028 Cardiac Rate: NL - 80 bpm EKG Rhythm: Sinus Rhythm EKG Comparison: No Significant Change - Unchanged from EKG on 03/27/2017 Summary of EKG Findings: No ST elevation. Re-Evaluation - Re-Evaluation 1 Re-Evaluation Time: 14:05 Change: Improved Comment: Discussing results and plans for discharge with patient. Abdominal Pain Fem Course/Dx - Course Course Of Treatment: This patient is a 42-year-old female who presents to the emergency room with chief complaint of epigastric pain with radiation to the lower abdomen. Blood test results without any significant abnormality except for potassium level of 2.4 for which the patient was given potassium chloride. In the ED course the patient was given IV fluids, potassium for the hypokalemia , Zofran for nausea vomiting morphine for pain. A/P CT IMPRESSION: 1. FATTY INFILTRATION OF LIVER. 2. COMPLEX CYSTIC LESION OF THE RIGHT HEMIPELVIS THAT APPEARS TO CORRESPOND TO AN OVARIAN LESION DESCRIBED ON PREVIOUS ULTRASOUND. After medications the patients symptoms have significantly improved. Patient is not having the pain any longer. Therefore the patient will be discharged home with follow-up with PCP. Patient will be given a prescription for Pepcid. I discussed all the findings and test results with the patient. Patient was instructed to return to the emergency room immediately if any of the symptoms return worsens. Plan of care was discussed with the patient and understands and agrees. All questions were answered at patient satisfaction. There were no further complaints or concerns. Lung exam before discharge: CTA B/L. Good air exchange. No wheezing or crackles heard. CVS: S1 and S2 present. No murmurs appreciated. Patient is alert and oriented x 3. Patient is hemodynamically stable. Patient will be discharged home with follow up PCP in the next 2-3 days - Diagnoses Differential Diagnosis: Positive: Bowel Obstruction, Constipation, Diverticulitis, Renal Colic, Urinary Tract Infection Provider Diagnoses: Epigastric pain, Hypokalemia, Ovarian cyst Discharge - Sign-Out/Discharge Documenting (check all that apply): Patient Departure - D/C Patient Received Moderate/Deep Sedation with Procedure: No - Discharge Plan Condition: Stable Disposition: HOME Prescriptions: Famotidine TAB* [Pepcid 20 MG TAB*] 20 mg PO BID PRN #20 tab PRN Reason: Pain Patient Education Materials: Famotidine (By mouth), Epigastric Pain (ED) Referrals: Briana Lion PA [Physician Ski Lift Attendant] - 3 Days Additional Instructions: FOLLOW UP WITH YOUR PRIMARY CARE PROVIDER WITHIN 3 DAYS. FOLLOW UP WITH YOUR PRIMARY CARE PROVIDER WITHIN ONE WEEK FOR HIGH BLOOD PRESSURE NOTED TODAY. RETURN TO THE ED FOR ANY WORSENING OR NEW SYMPTOMS. - Billing Disposition and Condition Condition: STABLE Disposition: Home - Attestation Statements Document Initiated by Maryibyoana: Yes Documenting Scribe: Hayley Stanley Provider For Whom Wayne is Documenting (Include Credential): Dr. Chay Hayes MD Scribe Attestation: Hayley Santillan, scribed for Dr. Chay Hayes MD on 07/15/18 at 0719. Scribe Documentation Reviewed: Yes Provider Attestation: The documentation as recorded by the Hayley frances accurately reflects the service I personally performed and the decisions made by , Dr. Chay Hayes MD Status of Scribe Document: Viewed
[2018-07-14 11:12] LABS: ABS Basophils 0.1 10^3/ul (0-0.2); ABS Eosinophils 0.1 10^3/ul (0-0.6); ABS Lymphocytes 1.5 10^3/ul (1.0-4.8); ABS Monocytes 0.5 10^3/ul (0-0.8); ABS Neutrophils 7.6 10^3/ul (1.5-7.7); ABS Nucleated RBC 0 10^3/ul; Eosinophil % 1.5 %; Hematocrit 42 % (35-47); Hemoglobin 13.9 g/dL (12.0-16.0); Lymphocyte % 15.5 %; Mean Corpuscular HGB Conc 34 g/dL (31-36); Mean Corpuscular Hemoglobin 29 pg (27-31); Mean Corpuscular Volume 87 fL (80-97); Mean Platelet Volume 7.8 fL (7.4-10.4); Nucleated Red Blood Cells % 0; Platelet Count 320 10^3/uL (150-450); Red Cell Distribution Width 14 % (10.5-15); White Blood Count 9.9 10^3/uL (3.5-10.8)
[2018-07-14 11:25] LABS: Urine Appearance Cloudy; Urine Bacteria 1+ (Absent); Urine Bilirubin Negative (Negative); Urine Blood Negative (Negative); Urine Color Yellow; Urine Glucose Negative (Negative); Urine Ketones Negative (Negative); Urine Nitrite Negative (Negative); Urine Protein Negative (Negative); Urine Red Blood Cell Trace(0-2/hpf) (Absent); Urine Squamous Epithelial Cell Present (Absent); Urine Urobilinogen Negative (Negative); Urine White Blood Cell Trace(0-5/hpf) (Absent)
[2018-07-14 11:33] LABS: Albumin 4.2 g/dL (3.2-5.2); Albumin/Globulin Ratio 1.6 (1-3); BUN/Creatinine Ratio 16.7 (8-20); C Reactive Protein 2.21 mg/L (<8.01); Calcium 9.2 mg/dL (8.6-10.3); EGFR African American 119.4 (>60); EGFR Non-African American 98.7 (>60); Globulin 2.7 g/dL (2-4); Potassium 3.4 mmol/L (3.5-5.0); Total Bilirubin 0.4 mg/dL (0.2-1.0); Total Protein 6.9 g/dL (6.4-8.9)
[2018-07-14] MEDS ORDERED: Ondansetron INJ* 2 MG/ML VIAL IV ONE (11:35)
[2018-07-14 11:36] LABS: HCG Pregnancy 0.71 mIU/mL
[2018-07-14] MEDS ORDERED: Morphine 4 MG/ML VIAL (1 ml) 4 MG/ML VIAL IV ONE (11:36)
[2018-07-14] MEDS ORDERED: NS 0.9% 1000 ML** 1,000 ML IV SCH (11:45)
[2018-07-14] MEDS ORDERED: Iodixanol* (CONTRAST) 320 MG/ML 100 ML SDV IV ONE (12:41)
[2018-07-14] MEDS ORDERED: Potassium Chloride LIQUID* 20 MEQ PACKET PO ONE (13:00)
[2018-07-14 15:01] VITALS: BP 152/87
== END 2018-07-14 15:00 | disposition home or self-care (01) ==
LOC: ED 10:17
DX: N83.209 Unspecified ovarian cyst, unspecified side (principal); K76.0 Fatty (change of) liver, not elsewhere classified; I10 Essential (primary) hypertension; E11.9 Type 2 diabetes mellitus without complications; F17.210 Nicotine dependence, cigarettes, uncomplicated; R10.13 Epigastric pain; E87.6 Hypokalemia; Z88.6 Allergy status to analgesic agent; Z88.3 Allergy status to other anti-infective agents; Z79.899 Other long term (current) drug therapy; Z79.84 Long term (current) use of oral hypoglycemic drugs
CPT/HCPCS: 36415; 74177; 80053; 81003; 81015; 82150; 83605; 83690; 84702; 85025; 86140; 87086; 93005; 96361; 96374; 96375; 99283; A9270-GY; J2270; J2405; Q9967